=== PATIENT | male | born 1965 | race Caucasian/White ===

== ENCOUNTER → 2019-03-16 | Outpatient (CLI) | payer BC ==
--- NOTE | 2019-03-16 17:06 | PCVCIMAG ---
APPROVED REPORT Study performed: 03/16/2019 14:36:49 Exam: Stress Echocardiogram Indication: Dyspnea, Chest Heaviness, Hypertension Patient Location: Echo lab Stress Nurse: Heather Jha RN Status: routine Ht: 5 ft 10 in HR: 65 bpm BP: 110/70 mmHg Rhythm: NSR Medical History Medical History: COPD Procedure The patient underwent an Exercise Stress Test using the Norman Protocol. Blood pressure, heart rate, and EKG were monitored. An Echocardiogram was performed by dyno technician in four stages in quad fashion. At peak stress, four selected images were obtained and placed side by side with resting images for comparison. Stress Test Details Stress Test: Exercise stress testing was performed using a Norman protocol. HR Resting HR: 65 bpmMax Heart Rate (APMHR): 167 bpm Max HR Achieved: 116 bpmTarget HR (85% APMHR): 141 bpm % of APMHR: 69 Recovery HR: 77 bpm HR response to stress: Normal HR response to stress BP Resting BP: 110/70 mmHg Max BP: 156/70 mmHg Recovery BP: 120/52 mmHg BP response to stress: Normal blood pressure response to stress. ECG Resting ECG: Sinus Rhythm Stress ECG: Sinus Rhythm Recovery ECG: Sinus Rhythm Clinical Reason for Termination: Dyspnea, Leg Discomfort, Fatigue Exercise duration: 5 min 00 sec Highest Stage Achieved: Stage 2: 2.5 mph at 12% grade. Exercise capacity: 7.00 METs Overall Exercise Capacity for Age: Poor Stress ECG Conclusion ECG: Non-ischemic Normal submaximal stress test. Pre-Stress Echo The resting Echocardiogram showed normal left ventricular contractility with an estimated Ejection Fraction of about 50-55%. Normal wall motion in all segments on baseline images. Normal color doppler. No regurgitation or stenosis present on pulmonic, mitral, tricuspid or aortic valves. Post-Stress Echo The stress Echocardiogram showed normal left ventricular contractility with an estimated Ejection Fraction of about 60-65%. Normal augmentation of wall motion in all segments on post stress images. Clinical No clinical or ECG evidence for ischemia. Conclusion Clinical Response: Non-ischemic Exercise Capacity: Below Average Stress ECG Response: Non-ischemic Stress Echo Images: Non-ischemic The left ventricle is normal in size and wall thickness in both the rest and stress images. Normal stress echocardiogram with submaximal exercise stress. Other Information Study Quality: Adequate <Conclusion> The left ventricle is normal in size and wall thickness in both the rest and stress images. Normal stress echocardiogram with submaximal exercise stress.
== END | disposition home or self-care (01) ==
LOC: PCVCIMAG 14:28
PROVIDERS: ATTEND Internal Medicine Cardiovascular Disease
DX: R07.89 Other chest pain (principal); R06.00 Dyspnea, unspecified; I10 Essential (primary) hypertension
CPT/HCPCS: 93325; 93351

== ENCOUNTER → 2019-04-10 | Outpatient (CLI) | payer BC ==
--- NOTE | 2019-04-10 13:23 | PCVCIMAG ---
EXAM: BILATERAL RENAL ULTRASOUND AND BILATERAL RENAL DUPLEX INDICATION: Hypertension. Acute kidney injury. FINDINGS: Right kidney: Length measures 11.4 cm. No hydronephrosis or extensive renal scarring. Right renal duplex: Adequate technical quality. No sonographic evidence of renal artery stenosis. The aortic to renal artery ratio is 1.6. The renal vein is patent. Left kidney: Length measures 12.0 cm. No hydronephrosis or extensive renal scarring. Left renal duplex: Adequate technical quality. No sonographic evidence of renal artery stenosis. The aortic to renal artery ratio is 1.8. The renal vein is patent. Bladder: No obvious abnormalities. IMPRESSION: No significant renal artery stenosis. No hydronephrosis bilaterally. LOC:[id number]
== END | disposition home or self-care (01) ==
LOC: PCVCIMAG 11:43
PROVIDERS: ATTEND Internal Medicine Cardiovascular Disease
DX: N17.9 Acute kidney failure, unspecified (principal); I10 Essential (primary) hypertension
CPT/HCPCS: 76770; 93975